=== PATIENT | female | born 1965 ===

== ENCOUNTER 2025-06-15 06:21 | Day surgery (SDC) | payer OTHER, SELFPAY | END 2025-06-15 11:34 | disposition home or self-care (01) | LOC: GI 06:21 | PROVIDERS: ATTENDING PHYSICIAN Internal Medicine Gastroenterology | DX: Z12.11 Encounter for screening for malignant neoplasm of colon (principal); K57.30 Diverticulosis of large intestine without perforation or abscess without bleeding | CPT/HCPCS: G0105 ==